=== PATIENT | female | born 1950 | race Caucasian/White ===

== ENCOUNTER → 2016-09-01 | Outpatient (CLI) | payer MEDICARE ==
[~2016-09-01] MED LIST: ASPIRIN81 M1 PO; BETIMOL5 M1 OP; HUMULIN 70/30 710 M1 SC; HUMULIN N100 UNIT/1 SC; HUMULIN N100 UNIT/1 SQ; HUMULIN R100 U/ML SC; LOVASTATIN40 MG PO; LUMIGAN 2.5 ML2.5 ML; Lopressor25 MG PO; MULTI-DAY VITA1 EACH PO; QUINAPRIL40 MG PO; REGLAN10 MG PO; XALATAN 0.005%2.5 ML INTRAOC; [UNRECOGNIZED DRUG - OTHER] PO
== END | disposition home or self-care (01) ==
LOC: US 16:33
DX: N13.30 Unspecified hydronephrosis (principal); N32.89 Other specified disorders of bladder; N85.2 Hypertrophy of uterus

== ENCOUNTER 2024-05-18 01:42 | Emergency (ER) | payer MEDICARE ==
[~2024-05-18] VITALS: Ht 160 cm; Wt 64.6 kg
== END 2024-05-18 03:53 ==
LOC: ED 01:42
DX: I46.9 Cardiac arrest, cause unspecified (principal); E11.9 Type 2 diabetes mellitus without complications; I10 Essential (primary) hypertension; E78.00 Pure hypercholesterolemia, unspecified; K21.9 Gastro-esophageal reflux disease without esophagitis; Z91.041 Radiographic dye allergy status; Z98.890 Other specified postprocedural states; Z95.5 Presence of coronary angioplasty implant and graft